=== PATIENT | female | born 1980 | race Caucasian/White ===

== ENCOUNTER 2016-12-17 21:46 | Emergency (ER) | payer MEDICARE, MEDICAID ==
[2016-12-17 22:11] VITALS: BP 145/106
[2016-12-17] MEDS ORDERED: hydrOXYzine HCl 100 MG/2 ML SDV IM ONE (23:09)
[2016-12-17] MEDS ORDERED: Ibuprofen 800 MG Tab PO ONE (23:11)
--- NOTE | 2016-12-17 23:17 | EDM.PDOC ---
ED HPI GENERAL MEDICAL PROBLEM - General Chief Complaint: Skin Complaint Stated Complaint: ITCHING ALL OVER Time Seen by Provider: 12/17/16 22:55 Source of Information: Reports: Patient History Limitations: Reports: No Limitations - History of Present Illness INITIAL COMMENTS - FREE TEXT/NARRATIVE: Patient presents tonight with complaints of significant itching to arms, legs, chest and back since 2100. 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 ) right ear Pain Score (Numeric/FACES): 5 - Related Data Allergies Allergy/AdvReac Type Severity Reaction Status Date / Time divalproex sodium Allergy Itching Verified 12/17/16 22:27 [From Depakote] doxycycline Allergy Irritabilit Verified 12/17/16 22:27 y latex Allergy Rash Verified 12/17/16 22:28 quetiapine [From Seroquel] Allergy Other Verified 12/17/16 22:27 verapamil Allergy Itching Verified 12/17/16 22:27 Home Meds: Home Meds ARIPiprazole [Abilify Maintena] 300 mg IM ASDIRECTED 12/17/16 [History] Cholecalciferol (Vitamin D3) [Vitamin D3] 1,000 units PO DAILY 12/17/16 [History ] Omeprazole 40 mg PO DAILY 12/17/16 [History] Propranolol [Propranolol CR 24 Hr] 120 mg PO DAILY 12/17/16 [History] Rizatriptan [Maxalt NCA CERTIFIED CONCIERGE] 10 mg PO Q2H PRN 12/17/16 [History] Topiramate [Topamax] 25 mg PO DAILY 12/17/16 [History] valACYclovir HCl [Valtrex] 500 mg PO DAILY 12/17/16 [History] Past Medical History HEENT History: Reports: Impaired Vision Cardiovascular History: Reports: None Respiratory History: Reports: None Gastrointestinal History: Reports: Irritable Bowel Syndrome Genitourinary History: Reports: None Musculoskeletal History: Reports: Fibromyalgia Neurological History: Reports: Migraines Psychiatric History: Reports: ADHD, Anxiety, Depression, Psych Hospitalization(s ), Schizophrenia Endocrine/Metabolic History: Reports: None Hematologic History: Reports: None Immunologic History: Reports: None Oncologic (Cancer) History: Reports: None Dermatologic History: Reports: None - Infectious Disease History Infectious Disease History: Reports: Chicken Pox - Past Surgical History Head Surgeries/Procedures: Reports: None HEENT Surgical History: Reports: None Cardiovascular Surgical History: Reports: None Respiratory Surgical History: Reports: None GI Surgical History: Reports: Cholecystectomy Female Surgical History: Reports: Hysterectomy Endocrine Surgical History: Reports: None Neurological Surgical History: Reports: None Musculoskeletal Surgical History: Reports: Carpal Tunnel, Other (See Below) Other Musculoskeletal Surgeries/Procedures:: bunions removed from right foot Oncologic Surgical History: Reports: None Dermatological Surgical History: Reports: None Social & Family History - Tobacco Use Smoking Status *Q: Never Smoker - Caffeine Use Caffeine Use: Reports: None - Recreational Drug Use Recreational Drug Use: No ED ROS GENERAL - Review of Systems Review Of Systems: See Below Constitutional: Denies: Fever, Chills, Malaise HEENT: Denies: Dental Pain, Ear Discharge, Ear Pain, Eye Discharge, Hearing Loss , Throat Pain, Throat Swelling, Vision Change Cardiovascular: Denies: Chest Pain, Dyspnea on Exertion, Edema, Lightheadedness , Palpitations, PND, Syncope Endocrine: Reports: No Symptoms GI/Abdominal: Reports: No Symptoms : Reports: No Symptoms Musculoskeletal: Reports: No Symptoms Skin: Reports: Dryness, Pruritis. Denies: Bruising, Erythema, Change in Color, Change in Hair/Nails Neurological: Denies: Confusion, Dizziness, Headache, Numbness, Tingling, Weakness Psychiatric: Reports: No Symptoms Hematologic/Lymphatic: Reports: No Symptoms Immunologic: Reports: No Symptoms ED EXAM, SKIN/RASH Exam: See Below Text/Narrative:: Aleyda is an alert, oriented 36 year old female with gradual pruritis two hours prior to arrival to ER. She denies recent change in medications. Exam Limited By: No Limitations General Appearance: Alert, WD/WN, Mild Distress Eye Exam: Bilateral Eye: Normal Inspection, PERRL Ears: Normal External Exam, Normal Canal, Hearing Grossly Normal, Normal TMs Nose: Normal Inspection, Normal Mucosa, No Blood Throat/Mouth: Normal Inspection, Normal Lips, Normal Teeth, Normal Oropharynx, Normal Voice, No Airway Compromise Head: Atraumatic, Normocephalic Neck: Normal Inspection, Supple, Non-Tender, Full Range of Motion. No: Lymphadenopathy (R), Lymphadenopathy (L) Respiratory/Chest: No Respiratory Distress, Lungs Clear, Normal Breath Sounds, No Accessory Muscle Use, Chest Non-Tender Cardiovascular: Normal Peripheral Pulses, Regular Rate, Rhythm, No Edema, No Murmur, No Rub Peripheral Pulses: 2+: Radial (L), Radial (R), Dorsalis Pedis (L), Dorsalis Pedis (R) Back Exam: Normal Inspection, Full Range of Motion. No: CVA Tenderness (R), CVA Tenderness (L) Extremities: Normal Inspection, Normal Range of Motion, Non-Tender, No Pedal Edema, Normal Capillary Refill Neurological: Alert, Oriented, CN II-XII Intact, Normal Cognition, Normal Gait, No Motor/Sensory Deficits Psychiatric: Normal Affect, Normal Mood Skin: Warm, Dry, Intact, Normal Color, No Rash, Other (pruritis, scratches from use of fingernails noted to back and arms. [facility] No pustular lesions or rashes noted. ) Location, Skin: Chest, Abdomen, Back, Upper Extremity, Right, Upper Extremity, Left, Lower Extremity, Right, Lower Extremity, Left Lymphatic: No Adenopathy Course - Vital Signs Last Recorded V/S: Last Vital Signs Temp 36.7 C 12/17/16 22:10 Pulse 92 12/17/16 22:10 Resp 18 12/17/16 22:10 BP 145/106 H 12/17/16 22:10 Pulse Ox 99 12/17/16 22:10 - Orders/Labs/Meds Meds: Medications Discontinued Medications Generic Name Dose Route Start Last Admin Trade Name Parul PRN Reason Stop Dose Admin Hydroxyzine HCl 100 mg 12/17/16 23:09 12/17/16 23:19 Vistaril IM 12/17/16 23:10 100 mg ONETIME ONE Administration Ibuprofen 800 mg 12/17/16 23:11 12/17/16 23:18 Motrin PO 12/17/16 23:12 800 mg ONETIME ONE Administration - Re-Assessments/Exams Free Text/Narrative Re-Assessment/Exam: 12/17/16 23:30 Patient reports improvement, requesting to be discharged. Departure - Departure Time of Disposition: 23:36 Disposition: Home, Self-Care 01 Condition: Good Clinical Impression: Pruritic dermatitis, Dry skin dermatitis - Discharge Information Instructions: Pruritus Referrals: PCP,None [Primary Care Provider] - Forms: ED Department Discharge Additional Instructions: You have dry and itching skin. Use a moisturizing lotion to help with dry skin every day. Use can use hydroxyzine 25mg PO three times a day as needed for itching. You are provided a prescription to fill in the morning. See your primary care provider in the next 7 days for recheck of itching and any other concerns. Return to the ER for worsening, difficulty breathing or other concerns. - Assessment/Plan Assessment:: Dry skin dermatitis Pruritis Plan: Patient has dry and itching skin. Use a moisturizing lotion to help with dry skin every day. She can use hydroxyzine 25mg PO three times a day as needed for itching. Hard copy prescription to fill in the morning provided. See your primary care provider in the next 7 days for recheck of itching and any other concerns. Return to the ER for worsening, difficulty breathing or other concerns.
== END 2016-12-17 23:45 | disposition home or self-care (01) ==
LOC: JP.ED 21:46
DX: L30.8 Other specified dermatitis (principal); L85.3 Xerosis cutis; Z91.040 Latex allergy status; Z88.8 Allergy status to other drugs, medicaments and biological substances; Z79.899 Other long term (current) drug therapy; Z90.710 Acquired absence of both cervix and uterus; Z90.49 Acquired absence of other specified parts of digestive tract
CPT/HCPCS: 96372; 99283; A9270; J3410